=== PATIENT | female | born 1980 | race Caucasian/White ===

== ENCOUNTER → 2016-05-24 | Outpatient (CLI) | payer BC ==
--- NOTE | 2016-05-25 10:25 | DI ---
US EXTREMITY NON-VASCULAR LTD,05/24/2016 1:07 PM: Clinical History: Superficial mass overlying the right foot. Previous Exam: None at this facility. Findings: Multiple grayscale and color Doppler sonographic images are obtained through the skin of the right fo ot. These images were obtained in real-time, and demonstrate a reniform hypoechoic mass measuring 1.3 x 0.4 x 1.4 cm. This had a slightly echogenic medulla. There is no associated fluid collection. There is some mild detectable Doppler flow. Impression: Hypoechoic reniform mass corresponding with the palpable abnormality. This most likely represents a l ymph node. No cystic masses.
== END ==
LOC: US 13:02
PROVIDERS: ATTEND Nurse Practitioner Family
DX: R22.41 Localized swelling, mass and lump, right lower limb (principal)
CPT/HCPCS: 76882

== ENCOUNTER 2016-06-08 20:58 | Emergency (ER) | payer BC ==
[~2016-06-08 20:58] MED LIST: EPINEPHrine Inj (1:1,000) 1 mg/ml amp SUBCUT ONE; FAMOTIDINE 20 MG/2 ML VIAL IVP ONE; Famotidine Inj 20 MG in Normal Saline Flush 10 ML IVP ONE; Sodium Chloride 0.9% 1,000 ML ONE; Sodium Chloride 0.9% 1,000 ML PRIMARY IV ONE; diphenhydrAMINE 50 MG/1 ML VIAL IVP ONE; diphenhydrAMINE 50 MG/1 ML VIAL ONE; methylPREDNISolone 125 MG/2 ML VIAL IVP ONE; methylPREDNISolone 125 MG/2 ML VIAL ONE
[2016-06-08] MEDS ORDERED: Sodium Chloride 0.9% 50 ML IV ONE (20:59)
[2016-06-08] MEDS ORDERED: EPINEPHrine Inj (1:1,000) 1 mg/ml amp ONE (21:04)
[2016-06-08] MEDS ORDERED: ALBUTEROL SULFATE 2.5 MG/3 ML NEB ONE ×2 (21:15→21:34)
[2016-06-08] MEDS ORDERED: ONDANSETRON 4 MG/2 ML VIAL ONE (21:26)
[2016-06-08] MEDS ORDERED: ONDANSETRON 4 MG/2 ML VIAL IVP ONE (21:30)
[2016-06-08] MEDS ORDERED: predniSONE Tab 20 MG TAB PO SCH (23:00)
[2016-06-09 00:19] VITALS: RESP 18; TEMP 97
--- NOTE | 2016-06-09 06:29 | PDOC ---
Allergy Symptoms HPI - General Chief Complaint: Allergic Reaction/Anaphylaxis Stated Complaint: ANAPHYLACTIC REACTION Date Seen by Provider: 06/08/16 Time Seen by Provider: 21:00 Source: POSITIVE: Patient Exam Limitations: POSITIVE: No limitations Nurse's Notes Reviewed & Considered: Yes - History of Present Illness Initial Comments: The patient is a 36 year old female. 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 She also developed some hoarseness to her voice and a sensation that her "throat was swelling". Patient states she has a history of food allergies, including allergies to wheat, oranges and hazelnuts. Patient has had similar episodes in the past. She carries with her EpiPen and she administered an adult EpiPen injection just prior to coming to the emergency room. She denied any wheezing or difficulty breathing. She does complain of diffuse urticaria, especially to the neck chest abdomen back, and hoarseness. Body Location Affected: REPORTS: Other (Diffuse urticaria and hoarseness with a sensation of throat swelling) Timing: REPORTS: Abrupt Duration: 1/2 hour Severity: Severe Quality: REPORTS: Other (Patient denies any pain) Associated Symptoms: REPORTS: Skin Rash (Diffuse urticaria), Itching (Diffuse itching), Troubles Swallowing, Troubles Speaking (Hoarseness) Identified Causes: REPORTS: Yes (Wheat allergy) When Exposed: REPORTS: Just Prior to Sx Onset Suspected Etiology: REPORTS: Other (Wheat) Similar Symptoms Previously: Yes Recent Care Received: REPORTS: Denies Treatment Prior To Arrival: REPORTS: Epi Pen, Benadryl - Oral (Patient self- administered a Benadryl tablet and an EpiPen injection) - Patient Home Medications Home Medications: Home Medications Diphenhydramine HCl [Benadryl] 1 cap PO BID PRN #30 12/03/11 Multivitamin [Everyday Basic] 1 each PO DAILY 05/03/13 Epinephrine [Epipen 2-Nba] 0.3 ml IM ONCE #0 unit 01/03/14 Levothyroxine Sodium 1 tab PO QD #30 tab 01/13/16 Duloxetine HCl [Cymbalta] 1 tab-cap PO DAILY #30 tab-cap 04/27/16 Naltrexone HCl/Bupropion HCl [Contrave Er 8-90 Mg Tablet] 2 tab PO BID #120 tab 04/27/16 Epinephrine [Epipen] 0.3 mg IJ ASDIR PRN #1 auto.injct 06/08/16 Prednisone 10 mg PO DAILY #20 tab 06/08/16 - Patient Allergies Allergies/Adverse Reactions: Allergies Allergy/AdvReac Type Severity Reaction Status Date / Time maltose Allergy Mild hives Unverified 04/27/16 13:34 orange juice Allergy Mild hives Unverified 04/27/16 13:34 wheat Allergy HIVES Unverified 04/27/16 13:34 hazelnut Allergy Unknown NOT Uncoded 11/14/14 09:12 APPLICABLE Past Medical History - heen HEENT History: Denies History Cardiovascular History: Denies History Respiratory History: Denies History Gastrointestinal History: Irritable Bowel Syndrome Additional Gastrointestinal History: states was told she has precursors for Barretts Esophagus Genitourinary History: Denies History Endocrine History: Hypothyroidism Musculoskeletal History: Back Pain, Other (please comment) Prosthesis or Implant: No Additional Musculoskeletal History: Hx of lower lumbar Rhizotomy in 06/08/2016 Neurological History: Migraines Blood Disorders: Denies History Psychiatric History: Depression, Anxiety Disorders Additional Psychiatric History: 04/24/13 TOOK APROX 130 BENADRYL 25 MG TABS, DENIES SHE TRIED TO COMMIT SUICIDE. History of Sexually Transmitted Diseases: No Female Reproductive History: Hysterectomy, Other (please comment) Additional Female Reproductive History: Hx of partial hysterectomy. 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 Anesthesia Reactions: No Malignant Hyperthermia: No Significant Family History: Cancer Past Medical History Reviewed: Reviewed - No Changes ROS - Limitations ROS Limitations: No Limitations Constitution: REPORTS: Denies Symptoms Cardiovascular: REPORTS: Denies Cardiac Symptoms Respiratory: REPORTS: Cough Non Productive Neurological: REPORTS: Denies Neuro Symptoms Gastrointestinal: REPORTS: Denies GI Symptoms Endocrine: REPORTS: Denies Symptoms Musculoskeletal: REPORTS: Denies MS Symptoms Genitourinary: REPORTS: Denies Symptoms Eyes: REPORTS: Denies Symptoms ENT: REPORTS: Denies Symptoms Skin: REPORTS: Rash (Diffuse urticaria, puritic. Not involving soles or palms) Lympathic: REPORTS: Denies Lympathic Symptoms Immunologic: POSITIVE: Anaphalaxis, Food Allergry Psychiatric: POSITIVE: Denies Psych Symptoms Allergy Symptoms Physical Exam - General Appearance General Appearance: POSITIVE: Alert, Cooperative, No Evidence of Trauma, Moderate Distress - HEENT Head / Face: POSITIVE: Atraumatic, Normal Inspection, No Facial Swelling Eyes: POSITIVE: Inspection Normal, PERRL, EOM's Intact, Eyelids Uninjured, Conjunctivae Uninjured, No Nystagmus, No Globe Trauma, Sclera Normal, Normal Corneal Inspection, Ant. Chamber Nml Inspect. Ears: POSITIVE: Ears Normal Inspection, TM Normal Inspection, Auricle Normal, External Canal Normal Nose: POSITIVE: Inspection Normal, No Apparent Trauma, Nares Normal, No CSF Leak Oropharynx: POSITIVE: External Inspection Nml, Pharynx Inspect. Nml (No obvious pharyngeal edema), Airway Intact, Moist Mucous Membranes, No Oral Injury, Gums Normal, No Drooling, No Thrush, Normal Gag Reflex. NEGATIVE: Voice Normal ( Hoarseness), Lips Normal (Mild swelling) Dental: POSITIVE: No Dental Injury - Pupils Pupil Size: 3 mm: Bilateral - Neck Neck: POSITIVE: Normal Inspection, No Apparent Injury - Respiratory Respiratory: POSITIVE: No Respiratory Distress, Breath Sounds Normal - Cardiovascular Cardiovascular: POSITIVE: Regular Rate and Rhythm, Heart Sounds Normal, Equal Pulses, Strong Pulses Peripheral Pulses: Brachial (R): 2+, Brachial (L): 2+ - Abdomen Abdomen: Soft: (All Quadrants), Normal Bowel Sounds: (All Quadrants), Denies Tenderness: (All Quadrants), No Splenomegaly: (All Quadrants), No Hepatomegaly: (All Quadrants), No Guarding: (All Quadrants), No Rebound: (All Quadrants), No Palpable Pulse: (All Quadrants), No Palpabale Mass: (All Quadrants), No Distention: (All Quadrants), No Rigidity: (All Quadrants) - Skin Skin: POSITIVE: Rash (Diffuse urticaria) - Extremities Extremity: Non-Tender: (All Extremities), Normal ROM: (All Extremities), Normal Inspection: (All Extremities) - Neurological / Psychological Neurological: POSITIVE: Oriented X3, safety manager Normal As Tested, Motor Normal, Sensation Normal, 5, 6 Allergy Symptoms Progress - Treatment Nebulizer Treatment Given:: Yes (Alyce) Treatment: POSITIVE: Oxygen, IV Fluids, Diphenhydramine (50 mg IV), Epinephrine (0.5 mg IM, 02/999), Methylprednisolone (125 mg IV), Famotidine (40 mg IV), Albuterol Neb, Ipratropium Neb - Patient's Progress Pain Medication Addressed: POSITIVE: Not Applicable School/Work Release Addressed: POSITIVE: Not Applicable Re-examine Time: 22:00 Re-Examine Comment: Patient much improved. Urticaria almost resolved. Hoarseness resolving and lip swelling almost completely resolved. Patient states she feels much better. Pruritus resolved. Lungs are clear. No respiratory distress and vital signs well-maintained. Re-Examine Time:: 23:00 Re-Examine Comment: Patient observed in the emergency room until 2300. At this time. Care is completely resolved and patient is asymptomatic. Voice is back to normal. No evidence of rebound. Status: POSITIVE: Improved, Re-Examined - Consult Counseled: POSITIVE: Patient, RE: DX, RE: Need for F/U Patient Care Time - Estimated PCT Patient Care Time (In Minutes): 45 Vital Signs - Recent Vital Signs Vital Signs: Vital Signs (Last 8 hours) Pulse Resp BP Pulse Ox 06/08/16 23:06 101 H 18 124/70 95 - VS Reviewed Vital Signs Reviewed: Yes Discharge Clinical Impression: Allergic reaction Discharge Disposition: Discharged to Home Condition: Stable Prescriptions / Orders: Epinephrine [Epipen] 0.3 mg IJ ASDIR PRN #1 auto.injct PRN Reason: Allergic Reaction Prednisone 10 mg PO DAILY #20 tab Patient Instructions Given at Discharge: Anaphylaxis (ED) Additional Instructions: EpiPen as necessary. Prednisone 4 tablets today and tomorrow and then decrease by one tablet every other day. Return anytime if condition worsens in any way. Avoid pastas and other wheat products. Return anytime if condition worsens in any way. Recommend you follow-up with your respiratory therapy manager to see about desensitization shots. Follow Up With: BRITTNEY BAGLEY [Primary Care Provider] - (Instructions as above. Return here as necessary. Follow-up with your respiratory therapy manager.)
== END 2016-06-08 23:06 | disposition home or self-care (01) ==
LOC: ER 20:58
DX: T78.1XXA Other adverse food reactions, not elsewhere classified, initial encounter (principal); R13.19 Other dysphagia
CPT/HCPCS: 94640; 96361; 96374; 96375; 99284 ×2; J1200; J2930; J7512; J2405; J7030